=== PATIENT | male | born 1985 | race Caucasian/White ===

== ENCOUNTER 2018-11-06 03:37 | Inpatient (IN) | payer OTHER ==
[2018-11-06] VITALS (8 sets, daily range): BP systolic 108–135; BP diastolic 52–72
[~2018-11-06] VITALS: Ht 190.5 cm; Wt 91.8 kg
--- NOTE | ~2018-11-06 | EKG ---
[place], [place] ELECTROCARDIOGRAM REPORT NAME: RICHARD WATERMAN UNIT #: [id number] ROOM: 516 DOCTOR: SOREN DRAFT REPORT BIRTHDATE: [birth year] [facility] Test Date: 2018-11-06 Test Time: 03:55:14 Pat Name: RICHARD WATERMAN Department: Room: 516 Gender: M Chuck Splitter: : 1985 Requested By: CAROLA ANAND Order Number: [id number] Reading MD: Charanjit Eden MD Measurements Intervals [place] Rate: 43 P: ME: QRS: 35 QRSD: 97 T: 57 QT: 499 QTc: 422 Interpretive Statements Junctional rhythm No previous ECG available for comparison Electronically Signed On 11-07-2018 6:52:21 PDT by Charanjit Eden MD CM:EKGRPT:ELECTROCARDIOGRAM REPORT [id number] CAROLA ANAND MD EPIPHANY DRAFT REPORT CAROLA ANAND MD
--- NOTE | ~2018-11-06 | EKG ---
[place], [place] ELECTROCARDIOGRAM REPORT NAME: RICHARD WATERMAN UNIT #: [id number] ROOM: 516 DOCTOR: EPIPHANY DRAFT REPORT BIRTHDATE: [birth year] [facility] Test Date: 2018-11-06 Test Time: 05:14:10 Pat Name: RICHARD WATERMAN Department: Room: 516 Gender: M Cripple Cutter: : 1985 Requested By: CAROLA ANAND Order Number: [id number] Reading MD: Charanjit Eden MD Measurements Intervals [place] Rate: 43 P: 0 WI: 116 QRS: 38 QRSD: 96 T: 59 QT: 498 QTc: 422 Interpretive Statements Marked sinus bradycardia Borderline short WI interval Electronically Signed On 11-07-2018 6:54:38 PDT by Charanjit Eden MD CM:EKGRPT:ELECTROCARDIOGRAM REPORT [id number] CAROLA ANAND MD EPIPHANY DRAFT REPORT CAROLA ANAND MD
[2018-11-06 04:41] LABS: BASO % 0.2 % (0.0-1.0); HEMATOCRIT 39.4 % (42.0-52.0); HEMOGLOBIN 13.5 g/dl (14.0-18.0); LYMPH # 1.2 10*3/uL (1.3-4.4); LYMPH % 9.5 % (27.0-41.0); MEAN CELL VOLUME 85.3 fl (80.0-94.0); MEAN CORPUSCULAR HGB 29.2 pg (27.0-31.0); MEAN CORPUSCULAR HGB CONC 34.3 g/dl (33.0-37.0); MEAN PLATELET VOLUME 10.5 fl (9.6-12.3); MONO # 0.4 10*3/uL (0.1-1.0); MONO % 3.5 % (3.0-9.0); NEUT # 10.6 10*3/uL (2.3-7.9); NEUT % 86.6 % (47.0-73.0); PLATELET COUNT AUTOMATED 197 10*3/uL (130-400); RED BLOOD COUNT 4.62 10*6/uL (4.50-5.90); RED CELL DISTRI WIDTH 12.8 % (0-14.5); WHITE BLOOD COUNT 12.3 10*3/uL (4.8-10.8)
--- NOTE | 2018-11-06 04:45 | NUR ---
PATIENT STILL WITH N/V. PATIENT GIVEN MEDICATION FOR N/V PLEASE SEE EMAR.
--- NOTE | 2018-11-06 04:45 | NUR ---
PATIENT WAS GIVEN IV 0.5MG DILAUDED. PATIENT WAS TOLD THE POSSIBILITY OF NOT BEING ABLE TO RETURN BACK TO NEW DAY. HE STATED IF HE CANT GO BACK THAT IS FINE.
[2018-11-06 04:59] LABS: ALBUMIN 4.3 gm/dl (3.1-4.5); ALKALINE PHOSPHATASE 76 U/L (45-117); BUN 24 mg/dl (7-24); CHLORIDE 110 mmol/L (98-107); CREATININE 0.96 mg/dL (0.70-1.30); LIPASE 49 U/L (73-393); POTASSIUM 3.6 mmol/L (3.5-5.1); SGOT/AST 11 IU/L (3-35); SGPT/ALT 16 U/L (12-78); SODIUM 141 mmol/L (136-145); TOTAL PROTEIN 7.9 gm/dL (6.4-8.2)
[2018-11-06 05:00] LABS: TROPONIN I < 0.015 ng/ml (<0.045)
--- NOTE | 2018-11-06 07:35 | NUR ---
A 33, admitted to , under the services of KLAUS Varela DO with a diagnosis of INTRACTABLE NAUSEA/VOMITING, OPIIATE WITHDRAWL. Chief complaint is ABDOMINAL PAIN, NAUSEA AND VOMITING. Patient arrived via ambulance from ER. Monitor applied. Initial assessment completed. Vital signs taken and recorded. KLAUS VARELA DO notified of admission to the unit. Orders received. See assessment for past medical history, medications and allergies. Patient and/or family oriented to unit. [facility] visitation policy reviewed. Clothing/patient valuable form completed. RAIZA KANG
--- NOTE | 2018-11-06 10:30 | NUR ---
MEDICATED WITH ZOFRAN IV FOR C/O OF NAUSEA, NO FURTHER EMESIS AT THIS TIME.
--- NOTE | 2018-11-06 11:20 | NUR ---
PATIENT REPORTS NAUSEA IDS DECREASED FROM ZOFRAN GIVEN X 1 HOUR AGO.
--- NOTE | 2018-11-06 12:40 | NUR ---
CALL PLACED TO DR. PAZ ADISED PATIENTS PULSE RATE DROPPED TO 36 AND IS CONSISTANTLY IN 40-50NRANGE, NO NEW ORDERS AT THIS TIME.
[2018-11-06 15:27] LABS: BILIRUBIN 1+ (NEGATIVE); BLOOD NEGATIVE (NEGATIVE); CLARITY SL CLOUDY (CLEAR); COLOR YELLOW (YELLOW); GLUCOSE NEGATIVE (NEGATIVE); KETONE 2+ (NEGATIVE); LEUKO ESTERASE NEGATIVE (NEGATIVE); NITRITE NEGATIVE (NEGATIVE); SPECIFIC GRAVITY >= 1.030 (1.005-1.030); UROBILINOGEN 0.2 E.U./dl (0.2-1.0)
--- NOTE | 2018-11-06 15:48 | NUR ---
PATIENT C/O OF ABDOMINAL PAIN 8/10 PRESSURE THAT SHOOTS ACROSS STOMACH, MEDICATED WITH TORADOL, PATIENT REPORTS HE WAS ABLE TO MOVE BOWELS.
[2018-11-06 15:51] LABS: RBC 0-2 rbc/hpf (0-2)
[2018-11-06 15:52] LABS: BACTERIA 1+; MUCOUS TRACE
--- NOTE | 2018-11-06 16:40 | NUR ---
PATIENT CONTINUES TO C/O OF ABDOMINAL PAIN 10/16 HE DESCRIBES SHARP SHOOTING PAIN ACROOS ABD.
--- NOTE | 2018-11-06 17:03 | NUR ---
CALL PLACED TP DR. MARTIN TO REPORT PATIENTS PAIN NOT CONTROLLED, REPORTED PATIENT RATES PAIN 8/10, AND IS ALSO SWEATIMNG MORE THAN USUAL.
--- NOTE | 2018-11-06 17:50 | NUR ---
PATIENT C/O NAUSEA MEDICATED WITH ZOFRAN PRN ORDERED.
--- NOTE | 2018-11-06 18:20 | NUR ---
GOOD EFFECT FROM MORHINE GIVEN X 1 HOUR AGO EVIDENCED BY PATIENT RESTING QUIETLY WITH EYES CLOSED, RESPIRATIONS EVEN AND NON-LABORED.
--- NOTE | 2018-11-06 20:01 | NUR ---
PATIENT MEDICATED WITH NORCO FOR C/O ABDOMEN PAIN 10/16. WILL MONITOR
--- NOTE | 2018-11-06 21:01 | NUR ---
NORCO EFFECTIVE FOR ABDOMEN PAIN.
--- NOTE | 2018-11-06 21:14 | NUR ---
STATED OK FOR PATIENT TO TAKE RESIDENTIAL COLLECTIONS OFF FOR SHOWER.
--- NOTE | 2018-11-06 21:40 | NUR ---
PATIENT OFF MONITOR FOR SHOWER. PATIENT STATED HE WILL NOTIFY NURSE ONCE DONE TO PUT MONITOR BACK ON
[2018-11-07] VITALS: BP 124/71
--- NOTE | 2018-11-07 02:00 | NUR ---
PATIENT RESTING QUIETLY IN BED. NO DISTRESS NOTED, CALL LIGHT WITHI NREACH
--- NOTE | 2018-11-07 02:05 | NUR ---
PATIENT MEDICATED WITH ZOFRAN FOR EMESIS/NAUSEA. WILL MONITOR
--- NOTE | 2018-11-07 02:42 | NUR ---
INFORMED THAT PATIENT HAS HAD LIQUID BM AND SOILED HIMSELF X2 AND HAD LARGE EMESIS, TREATED WITH ZOFRAN. PATIENT HAS BEEN GOING INTO SHOWER ON MULTIPLE OCCASIONS D/T THE WARMTH HELPING WITH ABDOMEN CRAMPING. STATED OK TO PLACE ORDER FOR KPAD TO AREA FOR CRAMPING.
--- NOTE | 2018-11-07 03:05 | NUR ---
PATIENT STATED ZOFRAN WAS SOMEWHAT EFFETIVE
--- NOTE | 2018-11-07 03:58 | NUR ---
24 HR chart check completed.
--- NOTE | 2018-11-07 05:22 | NUR ---
INFORMED THAT PATIENT HAD ANOTHER EMESIS. ZOFRAN WASN'T EFFECTIVE FOR LONG. STATES TO PLACE ORDER FOR 12.5 IV PHENERGAN X1 DOSE
[2018-11-07 06:26] LABS: BASO % 0.3 % (0.0-1.0); HEMATOCRIT 37.7 % (42.0-52.0); HEMOGLOBIN 12.7 g/dl (14.0-18.0); LYMPH # 2.5 10*3/uL (1.3-4.4); LYMPH % 25.4 % (27.0-41.0); MEAN CELL VOLUME 86.5 fl (80.0-94.0); MEAN CORPUSCULAR HGB 29.1 pg (27.0-31.0); MEAN CORPUSCULAR HGB CONC 33.7 g/dl (33.0-37.0); MEAN PLATELET VOLUME 10.9 fl (9.6-12.3); MONO # 0.8 10*3/uL (0.1-1.0); NEUT # 6.4 10*3/uL (2.3-7.9); PLATELET COUNT AUTOMATED 177 10*3/uL (130-400); RED BLOOD COUNT 4.36 10*6/uL (4.50-5.90); RED CELL DISTRI WIDTH 12.6 % (0-14.5); WHITE BLOOD COUNT 9.7 10*3/uL (4.8-10.8)
[2018-11-07 06:56] LABS: BUN 21 mg/dl (7-24); CHLORIDE 114 mmol/L (98-107); CREATININE 0.87 mg/dL (0.70-1.30); POTASSIUM 3.4 mmol/L (3.5-5.1); SODIUM 146 mmol/L (136-145)
[2018-11-07 07:03] LABS: THYROID STIM HORMONE (HS) 0.424 uIU/ml (0.358-4.75)
[2018-11-07 08:00] VITALS: BP 152/76
--- NOTE | 2018-11-07 10:40 | NUR ---
Shift chart check completed.
--- NOTE | 2018-11-07 11:43 | NUR ---
PATIENT ASSESSED - DENIES ALL C/O OR NEEDS
[2018-11-07 12:00] VITALS: BP 128/63
--- NOTE | 2018-11-07 13:00 | NUR ---
NO EMESIS OR DRY HEAVES SINCE ZOFRAN - JUST HAD CLEAR LIQUIDS IN SMALL AMOUNT FOR LUNCH
--- NOTE | 2018-11-07 15:48 | NUR ---
PHENERGAN GIVEN FOR NAUSEA... HE SAID IT WORKED BETTER THAN ZOFRAN YESTERDAY
[2018-11-07 16:00] VITALS: BP 118/61
--- NOTE | 2018-11-07 17:20 | NUR ---
PATIENT ATE SMALL AMOUNT OF STRAWBERRY ICE CREAM AND FEW SIPS COLA THEN STARTED HAVING DRY HEAVES.
[2018-11-07 20:00] VITALS: BP 128/72
--- NOTE | 2018-11-07 22:14 | NUR ---
INFORMED THAT PATIENT IS ANXIOUS AT THIS TIME. STATED TO PLACE 25MG VISTARIL PO NOW X1
--- NOTE | 2018-11-07 23:46 | NUR ---
INFORMED THAT PATIENT IMMEDIATLY REQUEST TO BE TAKEN OFF FOR A MULTIPLE SHOWERS AND HAS ONLY BEEN ON FOR A SHORT TIME TODAY. STATED OK TO D/C FLUIDS.
[2018-11-08] VITALS: BP 149/79
--- NOTE | 2018-11-08 02:00 | NUR ---
PATIENT RESTING IN BED, EYES CLOSED. NO DISTRESS NOTED. CALL LIGHT WITHI NREACH
[2018-11-08 08:00] VITALS: BP 116/62
[2018-11-08] MEDS ORDERED: ZOFRAN4 MG PO (11:45)
[2018-11-08] MEDS ORDERED: OMEPRAZOLE MAGN20 MG PO (11:45)
--- NOTE | 2018-11-08 12:06 | NUR ---
Discharge instructions reviewed with patient/family. Patient receptive and verbalizes understanding. Follow-up care arranged. Written instructions given to patient/family. TIANA MENDOSA
== END 2018-11-08 12:06 | disposition home or self-care (01) | DRG 392 ==
LOC: ED 03:37 → EDHOLD 06:23 → 5E 07:03
PROVIDERS: Emergency Medicine Emergency Medical Services; Student in an Organized Health Care Education/Training Program; ADMIT Internal Medicine
DX: K59.03 Drug induced constipation (principal); F11.20 Opioid dependence, uncomplicated; R17 Unspecified jaundice; N20.0 Calculus of kidney; R00.1 Bradycardia, unspecified; D72.829 Elevated white blood cell count, unspecified; D64.9 Anemia, unspecified; E87.8 Other disorders of electrolyte and fluid balance, not elsewhere classified; R73.9 Hyperglycemia, unspecified; E83.41 Hypermagnesemia; T50.995A Adverse effect of other drugs, medicaments and biological substances, initial encounter; Y92.89 Other specified places as the place of occurrence of the external cause; Z83.0 Family history of human immunodeficiency virus [HIV] disease